=== PATIENT | female | born 1955 | race Caucasian/White ===

== ENCOUNTER 2019-07-16 18:17 | Emergency (ER) | payer MEDICARE, OTHER, MEDICAID, SELFPAY ==
--- NOTE | 2019-07-16 18:44 | DI.RAD.S_ITS ---
PROCEDURE: XR SOFT TISSUE NECK INDICATIONS: Possible foreign body in throat- tooth pick TECHNIQUE: 2 views of the neck were acquired. COMPARISON: None. FINDINGS: Airway: The airway appears patent. Soft tissues: Prevertebral soft tissues are normal in thickness. The epiglottis and aryepiglottic folds appear normal. No soft tissue gas. Bones: No suspicious bony lesions. Visualized cervical spine is normally aligned. IMPRESSION: No radiopaque foreign bodies are seen. If there is strong clinical concern for a wooden foreign body, please consider a dedicated neck CT with IV contrast further evaluation. Dictated by: Cricket Sykes M.D. on 07/16/2019 at 19:33 Approved by: Cricket Sykes M.D. on 07/16/2019 at 19:34
[2019-07-16 18:50] VITALS: BP 198/88; PULSE 100; RESP 18; TEMP 36.9; O2SAT 94
--- NOTE | 2019-07-16 20:47 | ED.DENTAL ---
HPI - Dental/Oral <PRITI Cruz - Last Filed: 07/16/19 21:58> General Chief complaint: Dental/Oral Stated complaint: TOOTH PIC IN THROAT Time Seen by Provider: 07/16/19 20:27 Source: patient Mode of arrival: ambulatory Limitations: no limitations History of Present Illness HPI Narrative: 64-year-old female presents emergency department today complaining of possibly having a toothpick stuck in her throat for the past month. She states a month ago she took some sandwiches home from the green party and they had toothpicks in them. She found 1 toothpick in 1 sandwich and did not find the toothpick in the other sandwich that she ate. She thinks she may have swallowed it. Over the course of a month she has felt since stations of an object stuck in her throat. She states she feels like it occasionally moves down for other in her throat, she occasionally coughs up a small amount of food, and she feels like her throat is raw. She is able to swallow all foods but states dry foods are more painful. She denies headaches, chest pain, shortness of breath, drooling, difficulty speaking, nausea, vomiting, diarrhea, fevers, or other concerning symptoms. Related Data Home Medications Medication Instructions Recorded Confirmed No Known Home Medications 07/18/19 07/18/19 Allergies Allergy/AdvReac Type Severity Reaction Status Date / Time morphine AdvReac Mild Verified 07/18/19 15:15 Review of Systems <PRITI Cruz - Last Filed: 07/16/19 21:58> Review of Systems Narrative: REVIEW OF SYSTEMS: GENERAL: Denies fever or chills. HENT: No head trauma, hearing loss or sore throat. Patient reports sensation of foreign body in throat, see HPI. EYES: No loss of vision, double vision, eye pain, or irritation. CARDIOVASCULAR: No chest pain or syncope. RESPIRATORY: No shortness of breath or cough. GASTROINTESTINAL: No nausea, vomiting, diarrhea, or constipation. GENITOURINARY: No flank pain or dysuria. MUSCULOSKELETAL: No pain, weakness, or deformities. INTEGUMENTARY: No rash, lesions, or pruritus. NEURO: No numbness, tingling, memory loss, or confusion. PSYCH: No behavior or mood changes. PFSH <PRITI Cruz - Last Filed: 07/16/19 21:58> Medical History No significant past surgical history (Acute) Social History (Updated 07/16/19 @ 21:53 by PRITI Cruz) lives independently: Yes Social History household members: none lives independently: Yes occupational status: previously employed Smoking Status: Never smoker alcohol intake: current substance use type: does not use Exam <PRITI Cruz - Last Filed: 07/16/19 21:58> Initial Vital Signs Initial Vital Signs: Vital Signs Temperature 98.5 F 07/16/19 18:50 Pulse Rate 100 H 07/16/19 18:50 Respiratory Rate 18 07/16/19 18:50 Blood Pressure 198/88 H 07/16/19 18:50 Pulse Oximetry 94 07/16/19 18:50 PHYSICAL EXAMINATION: GENERAL: Well groomed, alert, and cooperative. Answers questions promptly and appropriately. Vital signs noted. HENT: Normocephalic, atraumatic. Ear canals patent. Oral mucosa is pink and moist. Oropharynx is without erythema. No sign bodies visualized. Tonsils not visualized. Patient was able to swallow during exam without difficulty, thyroid was not palpable. No lymphadenopathy. No masses felt upon deep palpation of the neck. No dysphonia. Patient was able to maintain secretions at the entire emergency department stay. EYES: Conjunctiva pink, sclera white, no periorbital swelling. CHEST: Normal to inspection and without deformities. CARDIOVASCULAR: S1 and S2 sounds normal. Regular rate and rhythm, no murmurs, clicks, or bruits. No pedal edema. RESPIRATORY: Normal respiratory rate, trachea midline, airway patent. No stridor, nasal flaring or accessory muscle use. Lungs are clear in all downing without wheeze, rhonchi, or crackles. GASTROINTESTINAL: Bowel sounds normoactive. Abdomen is soft and non-tender. No organomegaly. MUSCULOSKELETAL: Normal gait and coordination. Equal tone and mass bilaterally. EXTREMITIES: CMS intact. Moves all extremities. SKIN: Warm, dry, soft, appropriate color for ethnicity. No lesions, rashes, or wounds. NEURO: Alert and Oriented X 3. Good coordination. No ataxia, or sensory deficits, or cognitive issues. PSYCH: Appropriate affect and mood. <Aaliyah Morel DO - Last Filed: 07/17/19 19:17> Initial Vital Signs Initial Vital Signs: Vital Signs Temperature 98.5 F 07/16/19 18:50 Pulse Rate 100 H 07/16/19 18:50 Respiratory Rate 18 07/16/19 18:50 Blood Pressure 198/88 H 07/16/19 18:50 Pulse Oximetry 94 07/16/19 18:50 <Odalys Young MD - Last Filed: 07/19/19 07:06> Initial Vital Signs Initial Vital Signs: Vital Signs Temperature 98.5 F 07/16/19 18:50 Pulse Rate 100 H 07/16/19 18:50 Respiratory Rate 18 07/16/19 18:50 Blood Pressure 198/88 H 07/16/19 18:50 Pulse Oximetry 94 07/16/19 18:50 Course <PRITI Cruz - Last Filed: 07/16/19 21:58> Course Course Narrative: Patient stated her symptoms slightly decreased with administration of GI cocktail. However, she still felt the sensation in her throat. Orders Ordered: Discontinued Medications Al Hydrox/Mg Hydrox/Simethicone 20 ml/ Lidocaine HCl 15 ml 0 ml PO NOW ONE Stop: 07/16/19 20:40 Last Admin: 07/16/19 20:49 Dose: 15 ml Documented by: JULIO CESAR Consultations Consultation #1: Patient staffed with Dr. Young. Vital Signs Vital signs: Vital Signs - 8 hr 07/16/19 18:50 07/16/19 21:16 Temperature 98.5 F Pulse Rate 100 H 78 Respiratory Rate 18 16 Blood Pressure 198/88 H 184/78 H Pulse Oximetry 94 97 <Aaliyah Morel DO - Last Filed: 07/17/19 19:17> Orders Ordered: Discontinued Medications Al Hydrox/Mg Hydrox/Simethicone 20 ml/ Lidocaine HCl 15 ml 0 ml PO NOW ONE Stop: 07/16/19 20:40 Last Admin: 07/16/19 20:49 Dose: 15 ml Documented by: JULIO CESAR Vital Signs Vital signs: Vital Signs - 8 hr 07/16/19 18:50 07/16/19 21:16 Temperature 98.5 F Pulse Rate 100 H 78 Respiratory Rate 18 16 Blood Pressure 198/88 H 184/78 H Pulse Oximetry 94 97 <Odalys Young MD - Last Filed: 07/19/19 07:06> Orders Ordered: Discontinued Medications Al Hydrox/Mg Hydrox/Simethicone 20 ml/ Lidocaine HCl 15 ml 0 ml PO NOW ONE Stop: 07/16/19 20:40 Last Admin: 07/16/19 20:49 Dose: 15 ml Documented by: JULIO CESAR Vital Signs Vital signs: Vital Signs - 8 hr 07/16/19 18:50 07/16/19 21:16 Temperature 98.5 F Pulse Rate 100 H 78 Respiratory Rate 18 16 Blood Pressure 198/88 H 184/78 H Pulse Oximetry 94 97 MDM - Dental/Oral <PRITI Cruz - Last Filed: 07/16/19 21:58> Medical Records Attestation: I reviewed the patient's medical records. Lab Data Attestation: I reviewed the patient's lab results. Imaging Data Soft Tissue Neck: Radiologist's impression: [address] [place] [id number] XRay Report Signed Patient: Haylie Vaughn LMR#: [id number] : 3Acct:[id number] Age/Sex: 64 / FDate of Service: 07/16/19 Loc: ED Accession Number: [id number] Procedure: XR soft tissue neck Ordering Provider: Odalys Yonug MD PROCEDURE: XR SOFT TISSUE NECK INDICATIONS: Possible foreign body in throat- tooth pick TECHNIQUE: 2 views of the neck were acquired. COMPARISON: None. FINDINGS: Airway: The airway appears patent. Soft tissues: Prevertebral soft tissues are normal in thickness. The epiglottis and aryepiglottic folds appear normal. No soft tissue gas. Bones: No suspicious bony lesions. Visualized cervical spine is normally aligned. IMPRESSION: No radiopaque foreign bodies are seen. If there is strong clinical concern for a wooden foreign body, please consider a dedicated neck CT with IV contrast further evaluation. Dictated by: Cricket Sykes M.D. on 07/16/2019 at 19:33 Approved by: Cricket Sykes M.D. on 07/16/2019 at 19:34 [facility] Narrative Medical decision making narrative: It is possible but that patient had a foreign body still remains in her throat as patient continues to feel sensations and has difficulty swallowing various food boluses. However, since this has been going on for months and she has been able to eat and drink while maintaining secretions, from emergent referral is not indicated at this time. Differential also includes GERD (less likely as patient continued to have symptoms in her throat after GI cocktail, she does not exhibit other symptoms such as epigastric burning or cough) or an abrasion in her throat (less likely as is been going on for months and she feels a sensation of something moving). Patient was encouraged to follow up with the clinic as instructed for further testing if indicated. Strict return precautions given and follow-up instructions discussed. Discharge Plan Departure Patient Disposition: Home Clinical Impression: Foreign body in throat Qualifiers: Encounter type: initial encounter Qualified Code(s): T17.208A - Unspecified foreign body in pharynx causing other injury, initial encounter Discharge Date/Time: 07/16/19 21:00 Activity Restrictions/Additional Instructions: Thank you for entrusting me with your care today. As discussed, your x-rays are negative for any foreign bodies in your throat. However, due to your symptoms you may have a foreign body within your throat that is not visible on x-ray. I have included a referral to a surgeon, please call the office tomorrow to schedule an appointment, their phone number is [phone]. You can take ranitidine 150mg [id number] twice daily. Return to the emergency department immediately if you develop chest pain, shortness of breath, choking sensation, inability to swallow your saliva secretions, inability to swallow, difficulty talking, a concerning symptoms. Prescriptions: No Action No Known Home Medications RF: 0 Referrals: Glenn Dinh MD [Physician] - (Possible foreign body in throat, difficulty swallowing some foods. ) <Aaliyah Morel DO - Last Filed: 07/17/19 19:17> Sign Out Provider Sign Out Attestation: This patient was not staffed by me. It was staffed with Dr. Young
[2019-07-16] MEDS: MAG HYDROX/ALUMINUM/SIMETH SUS 20 ML, LIDOCAINE VISCOUS 2% 15 ML PO (20:49)
[2019-07-16 21:16] VITALS: BP 184/78; PULSE 78; RESP 16; O2SAT 97
== END 2019-07-16 21:00 | disposition home or self-care (01) ==
PROVIDERS: Emergency Provider Nurse Practitioner
DX: T17.208A Unspecified foreign body in pharynx causing other injury, initial encounter (principal)
CPT/HCPCS: 70360; 99282; 99283

== ENCOUNTER 2019-07-19 10:02 | Day surgery (SDC) | payer MEDICARE, MEDICAID, SELFPAY ==
[2019-07-19 11:05] VITALS: BP 174/88; PULSE 95; RESP 15; TEMP 36.6; O2SAT 95; BMI 45.8
[2019-07-19] MEDS: SODIUM CHLORIDE 0.9% 1,000 ML 200 ML IV (11:17)
[2019-07-19] MEDS: ONDANSETRON 4 MG/2 ML INJ IV (11:20)
[2019-07-19] MEDS: SCOPOLAMINE 1 PATCH TOP (11:20)
--- NOTE | 2019-07-19 11:25 | PM.PREOP ---
Pre-operative Note Interval Note History & Physical reviewed/Exam performed by Physician: Yes Changes to H&P: No ASA Class (for procedural sedation): II
[2019-07-19] MEDS: LIDOCAINE 4% SOLN 50 ML 20 ML TOP (11:40)
[2019-07-19] MEDS: fentaNYL 250 MCG/5 ML INJ IV (11:53)
[2019-07-19] MEDS: MIDAZOLAM 5 MG/5 ML VIAL IV (11:53)
--- NOTE | 2019-07-19 11:54 | PM.OP.ENDO ---
Operative Date/Time/Diagnoses Date of procedure: 07/19/19 Time of procedure: 11:54 Pre-op diagnosis: Foreign body sensation in throat Post-op diagnosis: same (Normal examination) Procedure & Clinicians Study performed: EGD Same procedure as scheduled: Yes Indications: Sensation of a foreign body when she swallows. Surgeon: Glenn Dinh Procedure Notes SCOAP/Timeout: Performed Procedure in detail: The patient had topical anesthetic applied to oropharynx. She was placed in left lateral decubitus position and underwent IV sedation directed by the surgeon consisting of fentanyl and Versed. She had been premedicated with anti nausea meds. A bite block was inserted and the scope was advanced through it into the mouth. Very careful examination was undertaken of all the structures around her larynx and above. They were all normal in appearance. There was no evidence of any inflammation or protruding foreign body at all. Cord structures were normal. No inflammation around the larynx. The locule of were normal. I carefully examined the entrance into the esophagus which appeared to be normal. The scope was passed into the esophagus which was carefully examined. GE junction was noted at 40 cm from the incisors. The esophagus was unremarkable. The stomach insufflated well. There were no lesions seen in the body, antrum or at the incisura. The pyloric channel was patent. The duodenum was unremarkable to the 3rd part. The scope was brought back into the stomach and retroflexed. The proximal stomach normal in appearance. There was no hiatal hernia.. The scope was straightened and brought out through the esophagus again. No lesions were seen. Again, I carefully came through the upper esophagus into the region around the airway. This was all carefully examined and well seen. I could find no evidence of inflammation or a foreign body or any abnormality whatsoever. The scope was removed and the patient tolerated the procedure well. Scope withdrawal time: Not applicable Sedation minutes: 10 Findings: other findings (Normal examination) Specimen(s): none sent Complications: none Post-procedure Plan for aftercare: If her symptoms persist beyond a week please call my office and we will schedule a CT scan. Follow up: as needed Disposition: PACU
[2019-07-19 11:58] VITALS: BP 129/75; PULSE 75; RESP 17; TEMP 36.5; O2SAT 92
[2019-07-19 12:03] VITALS: BP 124/64; PULSE 82; RESP 16; TEMP 36.5; O2SAT 92
[2019-07-19 12:08] VITALS: BP 117/65; PULSE 81; RESP 16; O2SAT 92
[2019-07-19 12:10] VITALS: BP 127/68; PULSE 80; RESP 16; TEMP 36.4; O2SAT 94
[2019-07-19 12:19] VITALS: BP 120/65; PULSE 80; RESP 16; TEMP 36.4; O2SAT 94
== END 2019-07-19 12:36 | disposition home or self-care (01) ==
PROVIDERS: Visit Provider Specialist
PROC: 0DJ08ZZ Inspection of Upper Intestinal Tract, Via Natural or Artificial Opening Endoscopic (ICD-10-PCS; CPT 43235; principal; 2019-07-19 11:45)
DX: R07.0 Pain in throat (principal)
CPT/HCPCS: 43235; 99152; J2250; J2405; J3010